=== PATIENT | male | born 1960 | race Caucasian/White ===

== ENCOUNTER 2024-05-03 07:23 | Day surgery (SDC) | payer MEDICARE, SELFPAY ==
--- NOTE | 2024-05-03 07:45 | FL_ITS ---
The [address] [address] Patient Name: CAROLYN CONTI MRN: [id number] date: 1960 Sex: M Assigned Patient Location: [place] Current Patient Location: Accession/Order Number: [id number] Exam Date: 05/03/2024 08:40 Report Date: 05/03/2024 10:32 At the request of: MICHAEL OTT Procedure: FL hip inj LT EXAMINATION: FL hip inj LT, FL guided needle placement HISTORY: Primary Osteoarthritis Left Hip FLUORO DOSE: Cannot calculate. mGy Reference air kerma (Ka,r) COMPARISON: No relevant comparison available. TECHNIQUE: An arthrogram was performed under fluoroscopic guidance using non-ionic contrast material in the usual sterile manner after obtaining informed consent. Standard level fluoroscopic mode of operation utilized. FINDINGS: JOINT: Left hip NEEDLE: 25 gauge, 3.5 spinal needle. MEDICATION: 2 mL buffered 1% lidocaine for subcutaneous anesthesia. 1.5 mL Omnipaque-300 iodinated contrast to visualize the joint space. 40 mg Kenalog and 2 mL 0.5% bupivacaine injected into the joint space. TECHNIQUE: Anterior approach with prior localization of the femoral artery. A single stick was successful in gaining access to the joint space. CLINICAL: Improvement of joint pain post injection. (8/10 preinjection; 2/10 post injection) COMPLICATIONS: None. OTHER: Negative. FL/FL hip inj LT IMPRESSION: 1. Successful therapeutic left hip injection. Electronically authenticated by: BREANNE MYLES Date: 05/03/2024 10:32
--- NOTE | 2024-05-03 07:45 | FL_ITS ---
The [address] [address] Patient Name: CAROLYN CONTI MRN: [id number] date: 1960 Sex: M Assigned Patient Location: [place] Current Patient Location: Accession/Order Number: [id number] Exam Date: 05/03/2024 08:40 Report Date: 05/03/2024 10:32 At the request of: MICHAEL OTT Procedure: FL guided needle placement EXAMINATION: FL hip inj LT, FL guided needle placement HISTORY: Primary Osteoarthritis Left Hip FLUORO DOSE: Cannot calculate. mGy Reference air kerma (Ka,r) COMPARISON: No relevant comparison available. TECHNIQUE: An arthrogram was performed under fluoroscopic guidance using non-ionic contrast material in the usual sterile manner after obtaining informed consent. Standard level fluoroscopic mode of operation utilized. FINDINGS: JOINT: Left hip NEEDLE: 25 gauge, 3.5 spinal needle. MEDICATION: 2 mL buffered 1% lidocaine for subcutaneous anesthesia. 1.5 mL Omnipaque-300 iodinated contrast to visualize the joint space. 40 mg Kenalog and 2 mL 0.5% bupivacaine injected into the joint space. TECHNIQUE: Anterior approach with prior localization of the femoral artery. A single stick was successful in gaining access to the joint space. CLINICAL: Improvement of joint pain post injection. (8/10 preinjection; 2/10 post injection) COMPLICATIONS: None. OTHER: Negative. FL/FL guided needle placement IMPRESSION: 1. Successful therapeutic left hip injection. Electronically authenticated by: BREANNE MYLES Date: 05/03/2024 10:32
[2024-05-03] MEDS: LIDOCAINE HCL 10 ML, SODIUM BICARBONATE 1 MEQ INJ (08:50)
[2024-05-03] MEDS: TRIAMCINOLONE ACETONIDE 40 MG/ML VIAL INJ (08:50)
[2024-05-03] MEDS: BUPIVACAINE HCL 0.5% PF 50 MG/10 ML VIAL 2 ML INJ (08:50)
--- NOTE | 2024-05-03 09:47 | SUR.PREOP ---
04/27/24 Per Celine pt made aware of date, time,prep, and procedure. Dr Sandhu made aware of pt allergy to IV contrast. He instructed her that it will not be IV contrast and pt will not need prepped. Pt made aware to not restart his ASA prior to the procedure.
--- NOTE | 2024-05-03 09:53 | PC.NURSE ---
0850 Pt stated that he felt lightheaded at the end of the procedure. Pt allowed to rest supine and then reverse trendelenberg for approx 6 minutes, given cool cloth to forehead. Room temperature was 76 degrees during procedure. Pt states that his was feeling better after resting for a bit and assisted to sitting and then to wheelchair. 0910 Pt states that he is feeling fine now that he is out of the hot room and after getting dressed.
== END 2024-05-03 09:15 | disposition home or self-care (01) ==
LOC: FL 07:30
PROVIDERS: Radiology Diagnostic Radiology; Visit Provider Nurse Practitioner Family
DX: M16.12 Unilateral primary osteoarthritis, left hip (principal)
CPT/HCPCS: 20610; 77002; J0665; J3301; Q9966